=== PATIENT | female | born 1975 | race Caucasian/White ===

== ENCOUNTER → 2017-12-26 10:04 | Outpatient (CLI) | payer OTHER, SELFPAY ==
[2018-01-03 12:10] LABS: HPV Reflexed? NOT INDICATED
== END ==
PROVIDERS: Visit Provider Obstetrics & Gynecology
DX: Z12.4 Encounter for screening for malignant neoplasm of cervix (principal)
CPT/HCPCS: 88175; G0145

== ENCOUNTER → 2018-05-13 13:34 | Outpatient (CLI) | payer OTHER, SELFPAY ==
[2018-05-13 15:55] LABS: Hematocrit 42.4 % (37-47); Hemoglobin 14.5 g/dl (12.0-15.0); Mean Corp Hgb Conc 34.2 g/gl (32-36); Mean Corpuscular Hgb 31.8 pg (27.0-32.0); Mean Platelet Vol. 12.3 fl (6.2-12.0); Platelet Count 217 K/mm3 (150-450); RBC Distribution Width SD 43.3 fl (35.1-43.9); Red Blood Count 4.56 M/mm3 (4.2-5.4); White Blood Count 7.9 K/mm3 (4.4-11.0)
[2018-05-13 16:18] LABS: Scan Indicated on CBC? Y/N NO
[2018-05-13 16:30] LABS: Follicle Stimulating Hormone 1.2 mIU/mL; Free T3 3.2 pg/mL (2.18-3.98); T4 Free Direct 0.93 ng/dL (0.76-1.46)
== END ==
PROVIDERS: Referring Provider Obstetrics & Gynecology; Visit Provider Obstetrics & Gynecology
DX: N92.6 Irregular menstruation, unspecified (principal); N93.9 Abnormal uterine and vaginal bleeding, unspecified
CPT/HCPCS: 36415; 83001; 84439; 84443; 84481; 85027

== ENCOUNTER → 2018-08-19 16:20 | Outpatient (CLI) | payer OTHER, SELFPAY ==
--- NOTE | 2018-08-19 16:24 | BI_ITS ---
MAMMOGRAPHY - BILATERAL SCREENING REASON FOR EXAM: Female, 43 years old. Routine annual screening examination. PERTINENT HISTORY: Non-contributory. TECHNIQUE: Digital bilateral breast vaibhav (3D mammographic acquisition) in the CC and MLO projections. 2-D mediolateral oblique (MLO) and craniocaudad (CC) views of both breasts were obtained. CAD: Full Field Digital Mammography with Computer Added Detection was performed. COMPARISON: Comparison is made with prior study dated March 12, 2017. FINDINGS: Breast Composition: The breasts are heterogeneously dense, which may obscure small masses. There are no dominant masses or suspicious calcifications. No other significant abnormalities are identified. There has been no significant change since the prior study. BI/SCREENING MAMM (CAD), BILAT IMPRESSION: Stable bilateral screening mammogram. Yearly follow-up mammogram recommended. (A) ASSESSMENT CATEGORY: BIRADS Category 1: Negative. A letter regarding these results will be sent to the patient by the facility within 30 days. Approximately 10% of breast cancers are not detected by mammography. A normal mammogram should not delay biopsy of a clinically suspicious abnormality. [id number] Electronically Signed: Jesus Alberts MD at 9:32 EST , Service support ,
== END ==
PROVIDERS: Referring Provider Obstetrics & Gynecology; Visit Provider Obstetrics & Gynecology
DX: Z12.31 Encounter for screening mammogram for malignant neoplasm of breast (principal)
CPT/HCPCS: 77063; 77067

== ENCOUNTER → 2019-01-13 12:47 | Outpatient (CLI) | payer OTHER, SELFPAY ==
[2018-12-24 16:10] VITALS: BMI 26.1
--- NOTE | 2019-01-13 12:53 | ECHOD_ITS ---
Reason For Study: AFIB Procedure This was a 2D Doppler, Color Flow transthoracic echocardiogram. Exam performed in department. Left Ventricle Normal LV size. Left ventricular systolic function is normal. The estimated ejection fraction is 60 %. No regional wall motion abnormalities noted. Right Ventricle Normal RV size. Normal systolic function. Atria Normal left atrium. Normal right atrium. Bubble contrast study negative for right to left interatrial shunt. Mitral Valve Normal mitral valve. Tricuspid Valve Normal tricuspid valve. Mild tricuspid valve insufficiency. Pulmonary artery systolic pressure is 24 mmHg. Aortic Valve Normal aortic valve. Trisinus/trileaflet aortic valve. Pulmonic Valve Normal pulmonic valve. Great Vessels Normal aortic root. The pulmonary artery is normal size. Normal inferior vena cava. Pericardium/Pleural No pericardial effusion. Medication 22 gauge I.V. with prn adaptor inserted into right arm. Performed a rapid injection of agitated mix of 9 cc saline and 1cc air to assess for atrial septal defect. Bubble study X 2 w/ Valsalva. MMode/2D Measurements & Calculations LVIDd: 4.2 cm IVSd: 0.86 cm Ao root diam: 2.8 cm LVIDs: 2.4 cm LVPWd: 0.93 cm RVDd: 3.2 cm FS: 44.1 % LAV(MOD-bp): 29.3 ml LA A4 area: 12.9 cm2 LA dimension(2D): 3.0 cm LAV(MOD-bp) Indexed: 16.9 ml/m2 LAV(MOD-sp2): 21.8 ml LAV(MOD-sp4): 28.2 ml RA A4 area: 9.2 cm2 Time Measurements MV dec time: 0.20 sec Doppler Measurements & Calculations MV E max angel: 66.4 cm/sec Lat Peak E' Angel: 11.9 cm/sec Med Peak E' Angel: 9.2 cm/sec MV A max angel: 43.4 cm/sec E/E' lat: 5.6 E/E' med: 7.2 MV E/A: 1.5 Ao V2 max: 120.2 cm/sec LV V1 max: 92.9 cm/sec TR max angel: 217.1 cm/sec Ao max P.8 mmHg LV V1 max P.5 mmHg TR max P.6 mmHg Interpretation Summary Normal LV size. Left ventricular systolic function is normal. The estimated ejection fraction is 60 %. Mild tricuspid valve insufficiency. Pulmonary artery systolic pressure is 24 mmHg. Bubble contrast study negative for right to left interatrial shunt. Ordering Physician: Lukasz Saravia Referring Physician: Lukasz Saravia Performed By: Tana Mack, RDCS, RVT
== END ==
PROVIDERS: Referring Provider Internal Medicine Cardiovascular Disease; Visit Provider Internal Medicine Cardiovascular Disease
DX: R00.2 Palpitations (principal)
CPT/HCPCS: 93225; 93226; 93306

== ENCOUNTER → 2019-01-29 15:53 | Outpatient (CLI) | payer OTHER, SELFPAY ==
[2019-01-29 15:17] VITALS: BMI 26.1
[2019-01-29 16:55] LABS: Absolute Lymphocyte Count 2.23 X10^3/uL (0.83-4.51); Absolute Neutrophil Count 4.5 X10^3/uL (2.0-7.7); Basophil# 0.07 X10^3/uL; Basophil% 0.9 % (0-1); Eosinophil# 0.42 X10^3/uL; Eosinophils% 5.4 % (0-5); Hematocrit 44.2 % (37-47); Hemoglobin 14.8 g/dL (12.0-15.0); Lymphocyte # 2.23 X10^3/ul (4.0); Lymphocyte % 28.7 % (19-41); Mean Corp Hgb Conc 33.5 g/dL (32-36); Mean Corpuscular Hgb 31.4 pg (27.0-32.0); Mean Corpuscular Volume 93.8 fL (81-99); Mean Platelet Vol. 11.9 fl (6.2-12.0); Monocyte# 0.56 X10^3/uL; Monocyte% 7.2 % (0-10); NRBC Flagged by Analyzer 0 % (0-5); Neutrophil # 4.48 X10^3/uL (2.7-7.7); Neutrophil % 57.5 % (47-70); Platelet Count 236 K/mm3 (150-450); RBC Distribution Width CV 12.5 % (11.6-14.6); RBC Distribution Width SD 42.7 fl (35.1-43.9); Red Blood Count 4.71 M/mm3 (4.2-5.4); White Blood Count 7.8 K/mm3 (4.4-11.0)
[2019-01-29 17:18] LABS: Anion Gap 8 (5-15); BUN 19 mg/dL (7-18); Chloride 103 mmol/L (98-107); Creatinine, Serum 0.83 mg/dL (0.55-1.02); EST Glomerular Filtration Rate 80 mL/min (>60); Est Glom Filt Rate - Afr Amer 97 mL/min (>60); Glucose 75 mg/dL (74-106); Magnesium 2.5 mg/dL (1.6-2.6); Potassium 4.2 mmol/L (3.5-5.1); Sodium Level 140 mmol/L (136-145)
== END ==
PROVIDERS: Referring Provider Internal Medicine Cardiovascular Disease; Visit Provider Internal Medicine Cardiovascular Disease
DX: R00.2 Palpitations (principal)
CPT/HCPCS: 36415; 80048; 83735; 85025

== ENCOUNTER → 2019-07-28 13:52 | Outpatient (CLI) | payer OTHER, SELFPAY ==
[2019-07-21 08:22] VITALS: BMI 26.1
== END ==
PROVIDERS: Referring Provider Internal Medicine Cardiovascular Disease; Visit Provider Internal Medicine Cardiovascular Disease
DX: R00.2 Palpitations (principal)
CPT/HCPCS: 93225; 93226

== ENCOUNTER → 2019-08-20 16:14 | Outpatient (CLI) | payer OTHER, SELFPAY ==
[2019-01-29 15:17] VITALS: BMI 26.1
[2019-07-21 08:22] VITALS: BMI 26.1
--- NOTE | 2019-08-20 16:17 | BI_ITS ---
MAMMOGRAPHY - BILATERAL SCREENING REASON FOR EXAM: Female, 44 years old. Routine annual screening examination. PERTINENT HISTORY: Non-contributory. TECHNIQUE: Digital bilateral breast talon (3D mammographic acquisition) in the CC and MLO projections. 2-D mediolateral oblique (MLO) and craniocaudad (CC) views of both breasts were obtained. CAD: Full Field Digital Mammography with Computer Added Detection was performed. COMPARISON: Comparison is made with prior examination dated August 19, 2018 and March 12, 2017. FINDINGS: Breast Composition: The breasts are heterogeneously dense, which may obscure small masses. There are no dominant masses or suspicious calcifications. Questionable 9.2 mm nodular density in the slightly upper retroareolar areolar region of the left breast. Correlation with ultrasound is recommended. No other significant abnormalities are identified. BI/SCREEN MAMM (CAD) W/TALON BILAT IMPRESSION: Possible 9.2 mm well-defined nodule in the slightly superior central aspect of the left breast. Correlation with ultrasound is recommended. ASSESSMENT CATEGORY: BIRADS Category 0: Incomplete. Need additional imaging evaluation. A letter regarding these results will be sent to the patient by the facility within 30 days. Approximately 10% of breast cancers are not detected by mammography. A normal mammogram should not delay biopsy of a clinically suspicious abnormality. [id number] Electronically Signed: Jesus Alberts, at 8:15 EST , Service support ,
== END ==
PROVIDERS: Referring Provider Obstetrics & Gynecology; Visit Provider Obstetrics & Gynecology
DX: Z01.411 Encounter for gynecological examination (general) (routine) with abnormal findings (principal); Z12.31 Encounter for screening mammogram for malignant neoplasm of breast
CPT/HCPCS: 77063; 77067

== ENCOUNTER → 2019-08-25 14:18 | Outpatient (CLI) | payer OTHER, SELFPAY ==
[2019-07-21 08:22] VITALS: BMI 26.1
--- NOTE | 2019-08-25 14:26 | US_ITS ---
STUDY: ULTRASOUND BREAST - LEFT REASON FOR EXAM: Female, 44 years old. TECHNIQUE: Axial and longitudinal images of the LEFT breast were performed with a high resolution ultrasound transducer. # OF IMAGES: 33 COMPARISON: Previous obtained on 08/20/2019 FINDINGS: LEFT Breast: There is a lesion in the retroareolar portion of the left breast the lesion measures 0.7 x 0.9 cm in and represents a benign simple cyst. Multiple retroareolar ducts are also seen. Posterior Enhancement: Yes Posterior Shadowing: no Margins: Smooth Echogenicity: Hypoechoic Compression effect on Shape: Compresses US/Breast Limited Unilateral IMPRESSION: A simple cyst is noted in the left retroareolar area. ASSESSMENT CATEGORY: BIRADS Category 2: Benign. A letter regarding these results will be sent to the patient by the facility within 30 days. Electronically Signed: Jae Dexter, at 17:50 EST Tel , Service support ,
== END ==
PROVIDERS: Referring Provider Obstetrics & Gynecology; Visit Provider Obstetrics & Gynecology
DX: N60.02 Solitary cyst of left breast (principal)
CPT/HCPCS: 76642

== ENCOUNTER → 2020-08-22 | Outpatient (CLI) | payer OTHER, SELFPAY ==
[2019-07-21 08:22] VITALS: BMI 26.1
[2020-08-25 15:44] LABS: HPV Reflexed? NOT INDICATED
== END | disposition home or self-care (01) ==
LOC: LABSPEC 17:26
PROVIDERS: Visit Provider Student in an Organized Health Care Education/Training Program
DX: Z12.4 Encounter for screening for malignant neoplasm of cervix (principal)
CPT/HCPCS: 88175; G0145

== ENCOUNTER → 2020-08-31 16:20 | Outpatient (CLI) | payer OTHER, SELFPAY ==
[2019-07-21 08:22] VITALS: BMI 26.1
--- NOTE | 2020-08-31 16:22 | BI_ITS ---
MAMMOGRAPHY - BILATERAL SCREENING REASON FOR EXAM: Female, 45 years old. Routine annual screening examination. PERTINENT HISTORY: Non-contributory. TECHNIQUE: Digital bilateral breast talon (3D mammographic acquisition) in the CC and MLO projections. 2-D mediolateral oblique (MLO) and craniocaudad (CC) views of both breasts were obtained. CAD: Full Field Digital Mammography with Computer Added Detection was performed. COMPARISON: Comparison is made with prior examination of 08/20/2019 and 08/19/2018. FINDINGS: Breast Composition: The breasts are heterogeneously dense, which may obscure small masses. There are no dominant masses or suspicious calcifications. Stable 9 mm well-defined nodule in the slightly upper retroareolar region of the left breast. Prior sonogram demonstrated this to be a small cyst. No other significant abnormalities are identified. There has been no significant change since the prior study. BI/SCRN MAMM (CAD)W/TALON BILAT IMPRESSION: Stable bilateral screening mammogram. Yearly follow-up mammogram recommended. (A) ASSESSMENT CATEGORY: BIRADS Category 2: Benign. A letter regarding these results will be sent to the patient by the facility within 30 days. Approximately 10% of breast cancers are not detected by mammography. A normal mammogram should not delay biopsy of a clinically suspicious abnormality. [id number] Electronically Signed: Jesus Alberts MD at 8:00 EST , Service support ,
== END ==
PROVIDERS: Referring Provider Student in an Organized Health Care Education/Training Program; Visit Provider Student in an Organized Health Care Education/Training Program
DX: Z12.31 Encounter for screening mammogram for malignant neoplasm of breast (principal)
CPT/HCPCS: 77063; 77067

== ENCOUNTER 2020-12-01 09:45 | Day surgery (SDC) | payer OTHER, SELFPAY ==
[2019-07-21 08:22] VITALS: BMI 26.1
[2020-11-25 11:27] LABS: Hematocrit 44.1 % (37-47); Hemoglobin 14.8 g/dL (12.0-15.0); Mean Corp Hgb Conc 33.6 g/dL (32-36); Mean Corpuscular Hgb 31.6 pg (27.0-32.0); Platelet Count 242 K/mm3 (150-450); RBC Distribution Width CV 12.6 % (11.6-14.6); RBC Distribution Width SD 43.1 fl (35.1-43.9); Red Blood Count 4.69 M/mm3 (4.2-5.4); White Blood Count 6.4 K/mm3 (4.4-11.0)
[2020-12-01] VITALS (8 sets, daily range): BP systolic 104–116; BP diastolic 60–84; PULSE 65–89; RESP 16–18; TEMP 36.6–36.9; O2SAT 98–100; BMI 27.7
--- NOTE | 2020-12-01 07:18 | HP.PCM.OB_ITS ---
History and Physical Date of Admission: 12/01/20 HISTORY OF PRESENT ILLNESS: Cecilia Bey, a 45 year old female 3 0 0 0 3, presented for: Hysteroscopy, D+C, Brittany ablation, and symphion polypectomy scheduled for heavy menses and abnormal uterine bleeding. Had attempted IUD placement in office, unsuccessful. Ultrasound demonstrated normal uterine size, possible polyps x2 present in cavity. ALLERGIES: NKA and No Known Drug Allergies MEDICATIONS HISTORY: Patient is also takin. No Meds MEDICAL HISTORY; denies SURGICAL HISTORY: 1. 02/23/2008 Gabriella Ross M.D. 2. 04/27/2003 Whit Mike M.D. FTP 3. 09/17/2005 , 09-17-05 Whit Mike M.D. MENSTRUAL HISTORY: LMP Known?- Definite Amount/Duration - 6-10, Regularity - Regular, Frequency - monthly days, LMP - 08/25/20, Age Onset Menarche - 13 PAST PREGNANCIES: Total Pregnancies - 3; Full Term Pregnancies - 3; Premature - 0; Abortions, Induced - 0; Abortions, Spontaneous - 0; Ectopics - 0; Multiple Births - 0; Living Children - 3 FAMILY HISTORY: Father - Hypercholesterolemia in first degree relative; Father - FH: Hypertension; MaternalGrandparent - Heart disorder MaternalGrandparent - Osteoporosis MaternalGrandparent - Heart Attack SOCIAL HISTORY: Alcohol Use - denies drinking Smoking - denies smoking Drugs - denies REVIEW OF SYSTEMS: GENERAL - Denies fever, or chills SKIN - Denies skin changes EYES - Denies visual changes EARS - Denies difficulty hearing NOSE - Denies nasal congestion or bleeding MOUTH - Denies sore throat or difficulty swallowing NECK - Denies pain or swelling RESPIRATORY - Denies shortness of breath or wheezing CARDIOVASCULAR - Denies palpitations or chest pain GASTROINTESTINAL - Denies nausea, vomiting, diarrhea, constipation GENITOURINARY - Denies dysuria, frequency of urination, incontinence of urine MUSCULOSKELETAL - Denies joint or muscle pain NEUROLOGICAL - Denies localized numbness or weakness PSYCHIATRIC - Denies depression or anxiety ENDOCRINE - Denies heat or cold intolerance, weight loss or gain HEMATO-IMMUNOLOGIC - Denies excesive bleeding with cuts Weight- 160.80 lbs Height- 64.00 inch BMI:27.66 CONSTITUTIONAL - NAD, well nourished, and well developed SKIN - No rash, lesions, or ulcers HEENT - Normocephalic, PERRLA, EOMI LUNGS - clear to auscultation and percussion CARDIAC - normal heart sounds and physiologic rhythm ABDOMEN - Without hepatosplenomegaly, distention, masses, rebound, or guarding; normal bowel sounds; no hernias EXTREMITIES - No edema or calf tenderness NEUROLOGICAL - Cranial nerves II-XII grossly intact PSYCHIATRIC - A and O to time, place, person, mood and affect DETAILED PELVIC EXAM External Genital Vagina - non-tender without lesions Urethra/Urethral Meatus - non-tender Bladder - non-tender Vagina - vaginal auguste are pink and moist without loss of rugae and no evidence of atropy Cervix - without cervical motion tenderness and has normal size and features without evident lesions Uterus - 5-6 cm in size, mobile and nontender Adnexa - clear without massess or tenderness ASSESSMENT/PLAN: Excessive And Frequent Menstruation With Regular Cycle Heavy menses, interrupting daily life and work. Attempted IUD placement, was unable to place in office. Discussed a blation procedure. Pt would like to proceed with this. US showed thickened endometrium, possible polyps Planned for hysteroscopy, dilation and curettage, polypectomy. R/B/A discussed. Risks include, but are limited to: risk of bleeding to the point of transfusion, infection, injury to surrounding tissue (bowel/bladder, uterine perforation), ICU admission, VTE.
[2020-12-01 10:20] LABS: Internal QC Validated? YES +Cl - CLEAR BKGD; Pregnancy, Urine Negative Negative
[2020-12-01] MEDS: Lactated Ringers 1,000 ML 100 ML IV (10:33)
--- NOTE | 2020-12-01 11:15 | EMB_PTH ---
PATIENT: ANDER BEY LOC: [facility] [place] U#:[id number] AGE/SX: 45/F ROOM: RE12/01/[address]: Dr. Laine Bey, : 1975 BED: DIS: 12/01/2020 SPEC #: [id number] RECD: 12/01/20 13:44 STATUS: HENRY REEllyn #: [id number] FRAN: 12/01/20 11:[address]: Laine Bey DEPT: SURGICAL PATHOLOGY RECD BY: Maine Alonso ENTERED: 12/02/20 09:01 SP TYPE: ENDOM BX/C VONDA DR: Cathy Primary Care Phys Tissues: Endometrium, NOS Procedures: Surgery Specimen Level IV HEADER OPERATION: Hysteroscopy, D & C Brittany PRE-OP DIAGNOSIS: Menorrhagia with uterine polyp TISSUE SUBMITTED: Endometrium MICROSCOPIC DIAGNOSIS Endometrium, D & C: Proliferative endometrium. SJ:melanie 12/05/2020 MICROSCOPIC DESCRIPTION Slides are reviewed. GROSS DESCRIPTION Received in fixative is one container labeled with the patient's name and designated endometrium. The specimen consists of multiple irregular fragments of light to dark carey soft tissue that in aggregate measure 5 x 3.5 x 0.2 cm. The specimen is totally submitted in two cassettes. / AM:melanie 12/02/20 TC:4 CPT: 37854
--- NOTE | 2020-12-01 12:39 | PCM.DC ---
Discharge Instructions Diet Discharge Diet: No restrictions Activity Discharge Activity: Return to Normal Activity, No Restrictions and May Shower May resume sexual activity in: 2 weeks Weight Bearing Status: Weight bearing as tolerated Lifting Restrictions: None Dressing / Incision Call your doctor if you observe: Fever of 101 or Higher, Inability to urinate, Shortness of breath, Dizziness, Swelling in the ankles, Chest pain and Calf discomfort Cleanse incision/area with: Soap & Water Follow Up Care Please Follow Up With: Laine Bey When: 2 weeks post op visit Test Results: Test results from this visit will be discussed in further detail at your follow-up appointment, if applicable. Discharge Plan Admission Primary Reason for Your Visit: Hysteroscopy, Dilation and curettage Ablation Attending Provider: Laine Bey Primary Care Provider: Care Physician,Cathy Primary Discharge Orders/Prescriptions Prescriptions: New oxycodone 5 mg tablet 5 mg PO Q6H PRN (Reason: pain (scale score 7-10)) 1 Days Qty: 3 RF: 0 Referrals / Follow Up: Care Physician,No Primary [Primary Care Provider] - Disposition Disposition (needs filled in before D/C Order can be placed): Home, self care
--- NOTE | 2020-12-01 12:40 | PCM.OPRPT ---
Report of Operation Date of Procedure: 12/01/20 Pre-Operative Diagnosis: Menorrhagia, abnormal uterine bleeding, uterine polyps Post-Operative Diagnosis: Menorrhagia, abnormal uterine bleeding, uterine polyp, thickened endometrium Surgery/Procedure Performed:: Hysteroscopy, dilation and curettage, Symphion polypectomy, endometrial ablation Description of Surgical Findings:: Normal-appearing external genitalia. Moderate uterine descensus. Small endometrial polyp, thickened endometrium Type of Anesthesia: MAC Specimen's removed: Endometrial curettings. Estimated Blood Loss (mL): 5cc Fluids Replaced: 500cc Description of Procedure: Indications, risks and benefits: Patient with heavy menstrual bleeding. Unable to place IUD in office. Ultrasound with concern for endometrial polyps. Decision for surgery was made. All risks, benefits, alternatives were discussed with patient. Risks include but are not limited to risk of bleeding to the point of transfusion, infection, injury to surrounding tissue including bowel or bladder requiring prolonged Jane catheter use, uterine perforation, VTE, ICU admission. Patient aware and consented. Procedure: Patient taken to the operating room, MAC anesthesia induced. Patient placed in the dorsal lithotomy position and prepped and draped in the usual sterile fashion. Weighted speculum placed in the posterior vagina and Weiss retractor used to visualize the cervix which was grasped with a single-tooth tenaculum. Cervix sequentially dilated. Hysteroscope placed through the cervical canal noting above findings. Uterus sounded to 7 cm, cervical length found to be 4 cm. Symphion device utilized to remove endometrial polyp. Hysteroscope removed. Curettage completed in a 360 degree manner. Brittany device opened and deployed. Passed safety checks and ablation completed. Device removed. Tenaculum removed, tenaculum sites hemostatic. Weighted speculum removed. At the end of the procedure all needle, lap, sponge counts were correct x3. UOP 200cc Complications None
[2020-12-01] MEDS: Acetaminophen 500 MG Tablet 1000 MG PO (14:34)
[2020-12-01] MEDS: oxyCODONE 5 MG Tablet PO (16:04)
== END 2020-12-01 16:52 | disposition home or self-care (01) ==
LOC: SDC 09:49 → AC 09:50
PROVIDERS: Anesthesiology; Referring Provider Student in an Organized Health Care Education/Training Program; Visit Provider Student in an Organized Health Care Education/Training Program
PROC: 0U5B8ZZ Destruction of Endometrium, Via Natural or Artificial Opening Endoscopic (ICD-10-PCS; CPT 58558; principal; 2020-12-01 11:00)
DX: N84.0 Polyp of corpus uteri (principal); N92.0 Excessive and frequent menstruation with regular cycle
CPT/HCPCS: 00952; 58558; 36415; 81025; 85027; 86850; 86900; 86901; 88305; J7120; J2405

== ENCOUNTER → 2021-12-11 | Outpatient (CLI) | payer OTHER, SELFPAY ==
--- NOTE | 2021-12-11 08:23 | BI_ITS ---
MAMMOGRAPHY - BILATERAL SCREENING REASON FOR EXAM: Female, 46 years old. Routine annual screening examination. PERTINENT HISTORY: Non-contributory. TECHNIQUE: Digital bilateral breast talon (3D mammographic acquisition) in the CC and MLO projections. 2-D mediolateral oblique (MLO) and craniocaudad (CC) views of both breasts were obtained. CAD: Full Field Digital Mammography with Computer Added Detection was performed. COMPARISON: Comparison is made with prior study 08/31/2020 and 08/20/2019. FINDINGS: Breast Composition: The breasts are heterogeneously dense, which may obscure small masses. There are no dominant masses or suspicious calcifications. No other significant abnormalities are identified. There has been no significant change since the prior study. BI/SCRN MAMM (CAD)W/TALON BILAT IMPRESSION: Stable bilateral screening mammogram. Yearly follow-up mammogram recommended. (A) ASSESSMENT CATEGORY: BIRADS Category 1: Negative. A letter regarding these results will be sent to the patient by the facility within 30 days. Approximately 10% of breast cancers are not detected by mammography. A normal mammogram should not delay biopsy of a clinically suspicious abnormality. [id number] Electronically Signed: Jesus Alberts MD at 9:17 EDT ,
== END | disposition home or self-care (01) ==
LOC: OPBI 08:21
PROVIDERS: Referring Provider Student in an Organized Health Care Education/Training Program; Visit Provider Student in an Organized Health Care Education/Training Program
DX: Z12.31 Encounter for screening mammogram for malignant neoplasm of breast (principal)
CPT/HCPCS: 77063; 77067

== ENCOUNTER → 2022-02-20 | Outpatient (CLI) | payer OTHER, SELFPAY ==
[2022-02-28 16:42] LABS: HPV Reflexed? NOT INDICATED
== END | disposition home or self-care (01) ==
LOC: LABSPEC 02-21 10:06
PROVIDERS: Visit Provider Student in an Organized Health Care Education/Training Program
DX: Z01.419 Encounter for gynecological examination (general) (routine) without abnormal findings (principal)
CPT/HCPCS: 88175; G0145